=== PATIENT | male | born 1935 | race Caucasian/White ===

== ENCOUNTER 2016-11-29 09:30 | Emergency (ER) | payer MEDICARE, OTHER ==
[~2016-11-29] VITALS: Ht 177.8 cm; Wt 84.8 kg
[~2016-11-29 09:30] MED LIST: ALDACTONE25 M1 PO; ALEVE220 MG; ALFUZOSIN HCL E10 MG PO; AMBIEN5 MG PO; ANTIVERT12.5 MG PO; ARICEPT10 M2 PO; ASPIR 8181 MG PO; ASPIRIN LOW STR81 MG PO; BABY ASPIRIN81 MG; BENEFIBER1 EAC1 PO; CALCIUM 600 +1 EA12 PO; CALTRATE 600 W1 EACH PO; CALTRATE PLUS T1 TAB PO; CALTRATE-600/VI1 TA1; CENTRUM SILVER1 TA; CENTRUM SILVER1 TA PO; COLACE; CRESTOR10 MG PO; CRESTOR40 MG/TAB PO; ELIGARD22.5 MG SQ; FEROSUL325 ( 65 ) PO; FISH OIL 1,0001 CA1 PO; FISH OIL 11000 MG/CA PO; FLUOXETINE HCL20 M3 PO; FOLIC ACID1 M1 PO; IMDUR30 MG PO; IRON325 ( 65 PO; ISOSORBIDE MONO30 M4 PO; LEUPROLIDE SQ; LISINOPRIL-HCT1 EAC1 PO; LISINOPRIL-HCT1 EACH PO; LISINOPRIL-HCTZ; LO-DOSE ASPIRIN81 M2 PO; METHOTREXA25 MG/113 SC; METHOTREXATE2.5 MG; METHOTREXATE2.5 MG PO; METOPROLOL TART50 M2 PO; METOPROLOL TART50 MG PO; MIRALAX17 G2 PO; MULTIVITAMINS1 EAC7 PO; NITROGLYCERIN0.4 M2 SL; NORCO 5/325 TAB1 TAB PO; NORVASC5 MG; OMEGA 31 CAP; PANTOPRAZOLE SO40 M3 PO; PLAVIX75 M1 PO; PLAVIX75 MG PO; PREDNISONE; PREDNISONE1 M1 PO; PREDNISONE5 MG; PREDNISONE5 MG PO; PROLIA60 MG/1 M1 SC; RANEXA500 M1 PO; SOLARAZE TP; SOLARAZE100 GM TOP; SPIRONOLACTONE25 M1 PO; STOOL SOFTENER100 M2 PO; STOOL SOFTENER100 MG PO; TAMIFLU75 MG PO; TYLENOL EXTRA500 M1 PO; TYLENOL500 MG; TYLENOL500 MG PO; UROXATRAL10 MG PO; ZOFRAN4 M2 PO; [UNRECOGNIZED DRUG - OTHER] SQ
[2016-11-29 10:01] LABS: BASO % 0.2 % (0-2); EOS % 0.5 % (0-7); HCT-HEMATOCRIT 33.3 % (36.0-53.5); HGB-HEMOGLOBIN 11.8 gm/dl (13.5-17.0); IMMATURE GRANULOCYTES ABSOLUTE 0.04 tho/cmm (0-0.03); IMMATURE GRANULOCYTES PERCENT 0.5 % (0-0.3); LYMPH % 20.2 % (20-45); LYMPH ABSOLUTE COUNT 1.7 tho/cmm (0.8-4.5); MCH (MEAN CORPUSCULAR HGB) 32.6 pg (28.0-32.0); MCHC MEAN CORPUSCULAR HGB CONC 35.4 % (32.0-36.0); MEAN PLATELET VOLUME 8.9 cmc (9.4-12.4); MONO % 8.4 % (0-12); MONOCYTE ABSOLUTE COUNT 0.7 tho/cmm (0.0-1.2); NEUTROPHIL ABSOLUTE COUNT 5.8 tho/cmm (1.6-8.0); NEUTROPHIL-AUTOMATED 5.8 tho/cmm (1.6-8.0); NEUTROPHILS % 70.2 % (40-80); PLATELET COUNT 239 tho/cmm (150-450); RED BLOOD COUNT 3.62 mil/cmm (4.40-5.70); WHITE BLOOD COUNT 8.3 tho/cmm (4.0-10.0)
[2016-11-29] MEDS ORDERED: ARICEPT10 M2 PO (10:06)
[2016-11-29] MEDS ORDERED: POLYETHYLENE G255 G1 PO (10:07)
[2016-11-29] MEDS ORDERED: FLONASE ALLERG9.9 ML (10:08)
[2016-11-29] MEDS ORDERED: LOSARTAN-HCTZ1 EAC4 PO (10:09)
[2016-11-29 10:13] LABS: ALB/GLOB RATIO 1.2 (0.8-2.0); ALBUMIN 3.6 g/dl (3.5-5.0); ALKALINE PHOSPHATASE 44 U/L (33-138); ALT/SGPT 34 U/L (12-78); ANION GAP 15 mmol/L (0-20); AST/SGOT 21 U/L (10-40); BILIRUBIN,TOTAL 0.7 mg/dl (0.0-1.5); BLOOD UREA NITROGEN 12 mg/dl (6-24); CALCIUM 8.7 mg/dl (8.5-10.5); CARBON DIOXIDE-VENOUS 23 mmol/L (22-32); CHLORIDE 101 mmol/l (96-110); GLUCOSE 109 mg/dL (70-110); POTASSIUM 3.9 mmol/L (3.7-5.1); SODIUM 135 mmol/L (135-145); eGFR VALUE FOR BLACK 73 mL/Min
[2016-11-29] MEDS ORDERED: ZOFRAN ODT4 MG PO (10:45)
== END 2016-11-29 11:21 ==
LOC: EDMED 09:30
PROVIDERS: Emergency Medicine
DX: K22.4 Dyskinesia of esophagus (principal); I25.10 Atherosclerotic heart disease of native coronary artery without angina pectoris; I11.9 Hypertensive heart disease without heart failure; Z86.73 Personal history of transient ischemic attack (TIA), and cerebral infarction without residual deficits; F03.90 Unspecified dementia, unspecified severity, without behavioral disturbance, psychotic disturbance, mood disturbance, and anxiety; Z98.890 Other specified postprocedural states; Z79.899 Other long term (current) drug therapy
CPT/HCPCS: J7030